=== PATIENT | male | born 1945 | race Caucasian/White ===

== ENCOUNTER 2019-04-02 21:07 | Emergency (ER) | payer MEDICARE, BC ==
[~2019-04-02] VITALS: Ht 160 cm; Wt 64.4 kg
--- NOTE | 2019-04-02 21:20 | NUR ---
PT BROUGHT IN W/ LINEAR LAC (SUPERFICIAL AT 2CM IN LENGTH) ON FOREHEAD SP MECH FALL AND HIT HEAD ON DOOR PT AOX4, DENIES DIZZINESS/-CHANGES IN LOC REPORTS TOLERABLE 4/10 PAIN AND TENDERNESS TO SITE DENIES PREVIOUS SURGERIES TO THE SITE DENIES NVD/SOB/JOINT PAIN MONITORED ACCORDINGLY
[2019-04-02] MEDS ORDERED: METF-442 PO (21:25)
[2019-04-02] MEDS ORDERED: BENA5TAB5 PO (21:25)
[2019-04-02] MEDS ORDERED: ASPI81TA31 PO (21:25)
[2019-04-02] MEDS ORDERED: OMEG-15 PO (21:25)
[2019-04-02] MEDS ORDERED: FINA5TAB11 PO (21:25)
[2019-04-02] MEDS ORDERED: OMEP20TA20 PO (21:25)
[2019-04-02] MEDS ORDERED: SITA100T PO (21:25)
[2019-04-02] MEDS ORDERED: LOVA40TA2 PO (21:25)
[2019-04-02] MEDS ORDERED: ALFU10TA10 PO (21:25)
[2019-04-02] MEDS ORDERED: GLIP5TAB13 PO (21:25)
[2019-04-02] MEDS ORDERED: MULT-1045 PO (21:25)
[2019-04-02] MEDS ORDERED: CALC-20 PO (21:25)
[2019-04-02] MEDS ORDERED: ACETAMINOPHEN ES 500 MG TABLET PO ONE (22:00)
[2019-04-02] MEDS ORDERED: NEOMY/BACITRA/POLYMYXIN B OINT UD PACKET TP ONE ×2 (22:00→22:08)
[2019-04-02] MEDS ORDERED: ACETAMINOPHEN ES 500 MG TABLET ONE (22:08)
--- NOTE | 2019-04-02 22:34 | NUR ---
BACK FROM CT AMBULATORY
--- NOTE | 2019-04-02 23:32 | NUR ---
Patient discharged to home in stable conditon. Written and verbal after care instructions given. Patient verbalizes understanding of instructions. AMBULATORY W/ STABLE GAIT ALL BELONGINGS W/ PT
[2019-04-03 01:14] VITALS: BP 148/88
== END 2019-04-02 23:45 | disposition home or self-care (01) ==
LOC: ER 21:07
DX: S00.81XA Abrasion of other part of head, initial encounter (principal); R51 Headache; E11.9 Type 2 diabetes mellitus without complications; E78.5 Hyperlipidemia, unspecified; Z79.82 Long term (current) use of aspirin; Z79.899 Other long term (current) drug therapy; W01.198A Fall on same level from slipping, tripping and stumbling with subsequent striking against other object, initial encounter; Y93.89 Activity, other specified; Y92.89 Other specified places as the place of occurrence of the external cause; Y99.8 Other external cause status
CPT/HCPCS: 70450; 72125; A4663; A9150